=== PATIENT | female | born 1950 | race Caucasian/White ===

== ENCOUNTER 2024-02-18 11:11 | Emergency (ER) | payer OTHER, SELFPAY ==
[2024-02-18 11:17] VITALS: BP 173/86
[2024-02-18 11:40] LABS: % Basophils 0.8 % (0-2); % Eosinophils 0.6 % (0-6); % Immature Granulocytes 0.2 % (0-0.5); % Lymphocytes 30.2 % (20.5-51.1); % Monocytes 6.9 % (1.7-9.3); % Neutrophils 61.3 % (42.2-75.2); Absolute Lymphocytes 1.6 10^3/uL (1.2-3.4); Absolute Monocytes 0.4 10^3/uL (0.1-0.6); Absolute Neutrophils 3.3 10^3/uL (1.4-6.5); Hematocrit 39.6 % (37.0-47.0); Hemoglobin 13.8 g/dL (12.0-16.0); Mean Corp Hgb Conc. 34.8 g/dL (33.0-37.0); Mean Corpuscular Hgb 31.2 pg (27.0-31.0); Mean Corpuscular Volume 89.4 fL (81.0-99.0); Mean Platelet Volume 13.4 fL (7.4-10.4); Nucleated Red Blood Cells % 0 %; Platelet Count 183 10^3/uL (130-400); Red Blood Cell Count 4.43 10^6/uL (4.20-5.40); Red Cell Dist. Width 12.8 % (11.5-14.5); White Blood Cell Count 5.3 10^3/uL (4.8-10.8)
[2024-02-18 11:53] LABS: ALT (SGPT) 16 U/L (0-35); AST (SGOT) 27 U/L (14-36); Albumin 4.6 g/dl (3.5-5.0); Alkaline Phosphatase 69 U/L (38-126); Blood Urea Nitrogen 20 mg/dl (7-17); Calcium 9.8 mg/dl (8.4-10.2); Carbon Dioxide 26 mmol/L (22-30); Chloride 101 mmol/L (98-107); Glucose 100 mg/dl (70-99); Potassium 4.2 mmol/L (3.5-5.1); Sodium 140 mmol/L (135-145); Total Bilirubin 0.8 mg/dl (0.2-1.3); Total Protein 7.1 g/dl (6.3-8.2); eGFR > 60.00
[2024-02-18 11:59] LABS: Troponin I < 0.012 ng/ml
--- NOTE | 2024-02-18 12:52 | ED.GENMED ---
History of Present Illness
<Shannon Mcmahan PA-C - Last Filed: 02/24/24 07:24>
General
Chief Complaint: Musculo-Skeletal Complaint
Source: patient
Exam Limitations: none
Time Seen by Provider: 02/18/24 12:23
Nursing documentation reviewed up to this point in time: agreed with
History of Present Illness
History of Present Illness:
73 y/o F with no sig pmh
here from PCP
says that she felt a weird discomfort around her left upper arm 2 days ago while walking around [employer]. she was carrying her handbag. she doesn't recall injury
it felt like 'a band around my arm' with some occasional tinglign in her hand/forearm. she says she didn't feel exertional pain per say and was still able to use her arm normally
yesterday she didn't feel the sypmtoms
but she called her PCP for an appointment and they scheduled her for today. she did feel a little discomfort this morning as well
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
she says she was sent over for more testing
pt has not had any exretional chest pain, neck pain, neck injuries, sob, nauesa, vomiting, headache, fever.
pt says she was sent over for US of the arm
her ekg was not sent with her but did notappear different to the PCP from within the past year
Past History
<Shannon Mcmahan PA-C - Last Filed: 02/24/24 07:24>
Past History
ED Past Medical History: None
ED Past Surgical History: Other (hernia)
Social History
Tobacco: Former smoker
Alcohol: None
Review of Systems
<Shannon Mcmahan PA-C - Last Filed: 02/24/24 07:24>
Review of Systems
Allergies reviewed?: Yes
All Other Systems: Not applicable
Phy Exam
<Shannon Mcmahan PA-C - Last Filed: 02/24/24 07:24>
Physical Exam
Physical Exam:
GENERAL: Alert , in no apparent distress
HEAD: NCAT
EYE: pupils equal and reactive, no nystagmus, no photophobia
NECK: Supple,full rom, nontender, full painless ROM
neg carotid bruits
ENT: o/p clr, mmm.
CARDIAC: Regular rate and rhythm . no edema
LUNGS: Clear breath sounds bilaterally, no acute respiratory distress, no wheezes/rales/rhonchi
ABDOMEN: Soft, without focal tenderness, no r/g, no cvat
NEUROLOGICAL: Alert and orientedx 4, cn intact, no facial asymmetry, 5/5 strength in UE/LE, sensation intact, romberg neg, ambulates without assistance, neg pronator drift
SKIN: Warm and dry, skin intact.
MUSCULOSKELETAL: No edema, well perfused.
full painless ROM of the shoulder, upper arm, no swelling, no skin changes, perfused;
PSYCH: Normal and appropriate interaction.
Course
<Shannon Mcmahan PA-C - Last Filed: 02/24/24 07:24>
Orders/Labs/Results
Orders:
Orders
02/18/24
ECG [Electrocardiogram (*1)] Urgent
Reason for Study: Chest Pain
02/18/24 11:27
CMP [Comprehensive Metabolic Panel] Urgent
Complete Blood Count/With Diff Urgent
Troponin I Urgent
02/18/24 12:47
CT Cervical Spine W/o Iv Contr Urgent
Comment:
Reason For Exam: band around upper arm
CT Head W/o Iv Contrast Urgent
Comment:
Reason For Exam: feels weak in left upper arm
Venous Doppler Upr Ext Left [US Periph Venous UPPER Ext LT] Urgent
Comment:
Reason For Exam: left arm pain
02/18/24 13:39
EKG- Treatment ONCE
02/18/24 14:28
Troponin I Urgent
02/18/24 14:30
Electrocardiogram (*1) Urgent
Reason for Study: Fatigue / Weakness
Abnormal Lab Results
02/18/24
11:27
MCH 31.2 H pg
(27.0-31.0)
MPV 13.4 H fL
(7.4-10.4)
BUN 20 H mg/dl
(7-17)
Glucose 100 H mg/dl
(70-99)
02/18/24 11:27
02/18/24 11:27
Vital Signs
Initial and Last Documented VS:
Initial Vital Signs
Temp Pulse Resp BP Pulse Ox
97.8 F 66 16 173/86 99
02/18/24 11:17 02/18/24 11:17 02/18/24 11:17 02/18/24 11:17 02/18/24 11:17
Last Documented Vital Signs
Temp Pulse Resp BP Pulse Ox
97.8 F 62 18 142/83 97
02/18/24 11:17 02/18/24 15:19 02/18/24 15:19 02/18/24 15:19 02/18/24 15:19
<Portillo Aguilar, - Last Filed: 02/18/24 15:08>
Orders/Labs/Results
Orders:
Orders
02/18/24
ECG [Electrocardiogram (*1)] Urgent
Reason for Study: Chest Pain
02/18/24 11:27
CMP [Comprehensive Metabolic Panel] Urgent
Complete Blood Count/With Diff Urgent
Troponin I Urgent
02/18/24 12:47
CT Cervical Spine W/o Iv Contr Urgent
Comment:
Reason For Exam: band around upper arm
CT Head W/o Iv Contrast Urgent
Comment:
Reason For Exam: feels weak in left upper arm
Venous Doppler Upr Ext Left [US Periph Venous UPPER Ext LT] Urgent
Comment:
Reason For Exam: left arm pain
02/18/24 13:39
EKG- Treatment ONCE
02/18/24 14:28
Troponin I Urgent
02/18/24 14:30
Electrocardiogram (*1) Urgent
Reason for Study: Fatigue / Weakness
Abnormal Lab Results
02/18/24
11:27
MCH 31.2 H pg
(27.0-31.0)
MPV 13.4 H fL
(7.4-10.4)
BUN 20 H mg/dl
(7-17)
Glucose 100 H mg/dl
(70-99)
02/18/24 11:27
02/18/24 11:27
Vital Signs
Initial and Last Documented VS:
Initial Vital Signs
Temp Pulse Resp BP Pulse Ox
97.8 F 66 16 173/86 99
02/18/24 11:17 02/18/24 11:17 02/18/24 11:17 02/18/24 11:17 02/18/24 11:17
Last Documented Vital Signs
Temp Pulse Resp BP Pulse Ox
97.8 F 62 18 142/83 97
02/18/24 11:17 02/18/24 15:19 02/18/24 15:19 02/18/24 15:19 02/18/24 15:19
<Shannon Mcmahan PA-C - Last Filed: 02/24/24 07:24>
MDM/Problems Addressed
Differential Diagnosis Includes:
radiculopathy, muscular pain, ACS/angina, less likely TIA
MDM/Problems Addressed:
73 y/o F with no sig pmh
here with some mild discomfort aroiund her left upper arm that she started noticing a few days ago, was carrying her handbag and felt discomfort with some mild tingling
ED Attending Note
<Shannon Mcmahan PA-C - Last Filed: 02/24/24 07:24>
-
Portions of this chart may have been created with voice recognition software.� Occasional wrong word or��sound alike� substitutions may have occurred due to the inherent limitations of voice recognition software.
<Portillo Aguilar DO - Last Filed: 02/18/24 15:08>
ED Attending Note
Patient seen and examined by attending physician: Yes
I performed the substantive portion of visit, reviewed & personally made and approve the management plan that is documented in note by myself or GEORGE.: Yes
Discharge Plan
Departure
Patient Disposition: Home (Routine Discharge)
Date of Disposition: 02/18/24
Time of Disposition: 15:10
Patient with high blood pressure during this ER visit?: No
Condition: Fair
Covid-19: Not Applicable
Discharge Problem:
Arm pain
Instructions: Radiculopathy (DC), Muscle and bone pain - Discharge instructions
Prescriptions:
No Action
ondansetron [Zofran ODT] 8 MG tablet,disintegrating
8 mg PO TID PRN (Reason: nausea/vomiting) Qty: 15 0RF
Referrals:
Jazzy Leiva CRNP [Family Provider] - Follow up in 2-3 days
Activity Restrictions/Additional Instructions:
YOUR WORK UP TODAY DOES NOT SHOW ANY SIGNS OF EMERGENCIES
YOU CAN TRY TAKING A BABY ASPIRIN JUST A PRECAUTION
BUT I BELIEVE YOUR SYPMTOMS MAY BE FROM DISC DISEASE IN YOUR NECK
FOLLOW UP WITH YOUR FAMILYDOCTOR
YOU MAY BENEFIT FROM PHYSICAL THERPAY
RETURN FOR: SEVERE PAIN, WEAKNESS THAT IS WORSENING, WORSENING NUMBNESS, VISOIN CHAGNES, ETC
Interventions
Interventions:
*Risk Screen - Suicide Last Done: 02/18/24 12:35
*General Assessment Last Done: 02/18/24 11:17
*Neglect/Abuse Screening Last Done: 02/18/24 12:35
ED- Fall Risk Assessment Last Done: 02/18/24 12:35
*ED COVID-19 Vaccine History Last Done: 02/18/24 11:17
*Nursing Disposition Last Done: 02/18/24 15:20
ED-Musculoskeletal Assessment Last Done: 02/18/24 12:35
Discharge Date and Time
Discharge Date/Time: 02/18/24 15:20
Print Language: LITHUANIAN
[2024-02-18 12:58] VITALS: BP 157/86; BMI 25.6
[2024-02-18 15:05] LABS: Troponin I < 0.012 ng/ml
[2024-02-18 15:19] VITALS: BP 142/83
== END 2024-02-18 15:20 | disposition home or self-care (01) ==
LOC: EMR 11:11
PROVIDERS: Emergency Medicine; Physician Assistant; EMERGENCY PHYSICIAN Emergency Medicine; FAMILY PHYSICIAN Nurse Practitioner Family
DX: M79.622 Pain in left upper arm (principal)
CPT/HCPCS: 99285; 70450; 72125; 80053; 84484; 85025; 93005; 93971

== ENCOUNTER → 2024-06-23 14:24 | Outpatient (REF) | payer OTHER, SELFPAY | LOC: WDC 14:24 | PROVIDERS: ATTENDING PHYSICIAN Nurse Practitioner Family | DX: N95.1 Menopausal and female climacteric states (principal); Z12.31 Encounter for screening mammogram for malignant neoplasm of breast; Z13.820 Encounter for screening for osteoporosis; M85.89 Other specified disorders of bone density and structure, multiple sites | CPT/HCPCS: 77063; 77067; 77080 ==

== ENCOUNTER → 2025-03-02 07:21 | Outpatient (REF) | payer OTHER, SELFPAY | LOC: HWRAD 07:21 | PROVIDERS: ATTENDING PHYSICIAN Nurse Practitioner Family | DX: S76.212A Strain of adductor muscle, fascia and tendon of left thigh, initial encounter (principal) | CPT/HCPCS: 76882 ==